=== PATIENT | female | born 2000 | race Hispanic/Latino ===

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

== ENCOUNTER 2021-04-17 04:22 | Emergency (ER) | payer MEDICAID ==
[~2021-04-17] VITALS: Ht 162.6 cm; Wt 97.5 kg
[2021-04-17] MEDS ORDERED: ONDA4TAB4 PO (06:36)
[2021-04-17] MEDS ORDERED: ACET-66 PO (06:36)
[2021-04-17 07:03] VITALS: BP 110/62
== END 2021-04-17 07:00 | disposition home or self-care (01) ==
LOC: EDH 04:22
DX: O98.512 Other viral diseases complicating pregnancy, second trimester (principal); U07.1 COVID-19; Z3A.14 14 weeks gestation of pregnancy
CPT/HCPCS: 87635; 87804 ×2; 87880; 99283; C9803